=== PATIENT | female | born 1985 | race African-American/Black ===

== ENCOUNTER 2017-11-09 14:43 | Emergency (ER) | payer SELFPAY ==
[2017-11-09] MEDS ORDERED: Ketorolac Tromethamine 60 MG/2 ML VIAL ONE (15:15)
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
== END 2017-11-09 15:51 | disposition home or self-care (01) ==
LOC: ERS 14:43
DX: S70.01XA Contusion of right hip, initial encounter (principal); F17.210 Nicotine dependence, cigarettes, uncomplicated; G51.0 Bell's palsy; W19.XXXA Unspecified fall, initial encounter
CPT/HCPCS: 72170; 96372; J1885

== ENCOUNTER 2017-12-25 14:29 | Emergency (ER) | payer SELFPAY ==
[2017-12-25 15:34] LABS: #Basophils 0.1 thou/uL (0.0-0.2); #Eosinphils 0.6 thou/uL (0.0-0.7); #Lymphocytes 3.3 thou/uL (1.20-3.40); #Monocytes 0.7 thou/uL (0.11-0.59); #Neutrophils 4.5 thou/uL (1.40-6.50); %Basophils 1.4 % (0.0-1.0); %Eosinophils 6.4 % (0.0-10.0); %Lymphocytes 35.4 % (21.0-51.0); %Neutrophils 48.8 % (42.0-75.0); Mean Corpuscular HGB CONC 31.7 g/dL (32.0-36.0); Mean Corpuscular Hemoglobin 26.9 pg (27.0-31.0); Mean Corpuscular Volume 84.8 fl (81.0-99.0); Mean Platelet Volume 7.2 fL (7.4-10.4); Platelet Count 304 thou/uL (130-400); RBC Distribution Width 14.1 % (11.5-14.5); Red Blood Cell (RBC) Count 4.47 mill/uL (4.20-5.40); White Blood Cell (WBC) Count 9.2 thou/uL (4.8-10.8)
[2017-12-25 15:58] LABS: ALT (SGPT) 11 U/L (8-55); AST (SGOT) 15 U/L (5-34); Albumin 3.7 g/dL (3.5-5.0); Alkaline Phosphatase 57 U/L (40-150); Anion Gap 12 mmol/L (10-20); BUN (Urea Nitrogen) 7 mg/dL (7.0-18.7); Bilirubin, Total 0.2 mg/dL (0.2-1.2); CK (CPK) 58 U/L (29-168); Calc. Creatinine Clearance 0 mL/min (70-130); Calcium 8.8 mg/dL (7.8-10.44); Carbon Dioxide 22 mmol/L (22-29); Chloride 109 mmol/L (98-107); Estimated GFR-MDRD Greater than 90; Globulin 2.7 g/dL (2.4-3.5); Glucose 102 mg/dL (70-105); Potassium 4.2 mmol/L (3.5-5.1); Protein, Total 6.4 g/dL (6.0-8.3); Sodium 139 mmol/L (136-145)
[2017-12-25 16:01] LABS: CKMB 0.3 ng/mL (0-6.6); Troponin I Less than 0.010 ng/mL (< 0.028)
--- NOTE | 2017-12-25 16:02 | RAD ---
CHEST ONE VIEW: History: Chest pain. Comparison: 07-10-16 FINDINGS: Lungs are clear. No pneumothorax or effusion. Cardiac silhouette and mediastinal contours are within normal limits. NO acute osseous abnormality. IMPRESSION: No acute intrathoracic abnormality. POS: [facility]
[2017-12-25] MEDS ORDERED: Ketorolac Tromethamine 30 MG/ML VIAL ONE (16:05)
== END 2017-12-25 17:09 | disposition home or self-care (01) ==
LOC: ERS 14:29
DX: J40 Bronchitis, not specified as acute or chronic (principal); F17.210 Nicotine dependence, cigarettes, uncomplicated
CPT/HCPCS: 71045; 80053; 82550; 82553; 84484; 85025; 93005; 96374; J1885

== ENCOUNTER 2018-03-08 13:10 | Emergency (ER) | payer SELFPAY ==
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
== END 2018-03-08 14:31 | disposition home or self-care (01) ==
LOC: ERS 13:10
DX: S52.601A Unspecified fracture of lower end of right ulna, initial encounter for closed fracture (principal); F17.210 Nicotine dependence, cigarettes, uncomplicated; Z71.6 Tobacco abuse counseling; Y04.0XXA Assault by unarmed brawl or fight, initial encounter
CPT/HCPCS: 25530; 96372; 99406; J2270

== ENCOUNTER 2018-05-05 10:13 | Emergency (ER) | payer SELFPAY ==
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
[2018-05-05] MEDS ORDERED: traMADol HCl 50 MG TAB ONE (12:34)
[2018-05-05] MEDS ORDERED: Acetaminophen 500 MG TAB ONE (12:35)
[2018-05-05] MEDS ORDERED: Ketorolac Tromethamine 30 MG/ML VIAL ONE (12:35)
== END 2018-05-05 13:12 | disposition home or self-care (01) ==
LOC: ERS 10:13
DX: S52.601D Unspecified fracture of lower end of right ulna, subsequent encounter for closed fracture with routine healing (principal); G51.0 Bell's palsy; F17.210 Nicotine dependence, cigarettes, uncomplicated
CPT/HCPCS: 29125; 96372; J1885

== ENCOUNTER 2018-07-09 12:51 | Emergency (ER) | payer SELFPAY ==
[2018-07-09] MEDS ORDERED: Acetaminophen 500 MG TAB ONE (13:52)
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
== END 2018-07-09 14:55 | disposition home or self-care (01) ==
LOC: ERS 12:51
DX: J40 Bronchitis, not specified as acute or chronic (principal); F17.210 Nicotine dependence, cigarettes, uncomplicated
CPT/HCPCS: 71046; 87081; 87430; 87804

== ENCOUNTER 2018-07-11 01:49 | Emergency (ER) | payer SELFPAY ==
[2018-07-11 02:38] LABS: #Basophils 0.1 thou/uL (0.0-0.2); #Eosinphils 0.4 thou/uL (0.0-0.7); #Lymphocytes 2.1 thou/uL (1.20-3.40); #Monocytes 0.5 thou/uL (0.11-0.59); #Neutrophils 4.5 thou/uL (1.40-6.50); %Basophils 1.2 % (0.0-1.0); %Eosinophils 5.5 % (0.0-10.0); %Lymphocytes 27.4 % (21.0-51.0); %Monocytes 6.5 % (0.0-10.0); %Neutrophils 59.5 % (42.0-75.0); Hemoglobin 11.5 g/dL (12.0-16.0); Mean Corpuscular HGB CONC 30.8 g/dL (32.0-36.0); Mean Corpuscular Hemoglobin 25.7 pg (27.0-31.0); Mean Corpuscular Volume 83.5 fL (78.0-98.0); Platelet Count 338 thou/uL (130-400); RBC Distribution Width 14.2 % (11.5-14.5); Red Blood Cell (RBC) Count 4.46 mill/uL (4.20-5.40); White Blood Cell (WBC) Count 7.6 thou/uL (4.8-10.8)
[2018-07-11] MEDS ORDERED: Ibuprofen 800 MG TAB ONE (04:13)
--- NOTE | 2018-07-11 08:28 | RAD ---
CHEST 2 VIEWS: Date: 07/11/18 HISTORY: Weakness. COMPARISON: Radiograph dated 07/09/18. FINDINGS: Lungs are clear. No pneumothorax or effusion. Cardiac silhouette and mediastinal contours within norm al limits. No acute osseous abnormality. IMPRESSION: No acute intrathoracic abnormality. POS: [facility]
== END 2018-07-11 04:59 | disposition home or self-care (01) ==
LOC: ERS 01:49
DX: J20.8 Acute bronchitis due to other specified organisms (principal); G51.0 Bell's palsy; F17.210 Nicotine dependence, cigarettes, uncomplicated
CPT/HCPCS: 36415; 71046; 85025

== ENCOUNTER 2018-11-17 09:34 | Emergency (ER) | payer SELFPAY ==
[2018-11-17] MEDS ORDERED: diphenhydrAMINE 50 MG/ML VIAL ONE (10:13)
[2018-11-17] MEDS ORDERED: Metoclopramide HCl 10 MG/2 ML VIAL ONE (10:13)
[2018-11-17] MEDS ORDERED: Acetaminophen 500 MG TAB ONE (10:13)
--- NOTE | 2018-11-17 10:33 | CT ---
CT BRAIN WITHOUT CONTRAST: HISTORY: Headache. COMPARISON: 04/04/2017 FINDINGS: No evidence of infarct, hemorrhage, midline shift, or abnormal extraaxial fluid collections is seen. The ventricular size is normal, and the basilar cisterns are patent. The bony calvarium is intact. There is mucosal disease in the paranasal sinuses. IMPRESSION: 1. No CT evidence of acute intracranial process. 2. Paranasal sinus disease. POS: [facility]
[2018-11-17 10:59] LABS: #Basophils 0.2 thou/uL (0.0-0.2); #Eosinphils 0.4 thou/uL (0.0-0.7); #Lymphocytes 2.8 thou/uL (1.20-3.40); #Monocytes 0.8 thou/uL (0.11-0.59); #Neutrophils 6.3 thou/uL (1.40-6.50); %Basophils 1.8 % (0.0-1.0); %Eosinophils 3.6 % (0.0-10.0); %Lymphocytes 26.7 % (21.0-51.0); %Monocytes 7.2 % (0.0-10.0); %Neutrophils 60.7 % (42.0-75.0); Hemoglobin 11.6 g/dL (12.0-16.0); Mean Corpuscular HGB CONC 30.5 g/dL (32.0-36.0); Mean Corpuscular Hemoglobin 24.2 pg (27.0-31.0); Mean Corpuscular Volume 79.4 fL (78.0-98.0); Mean Platelet Volume 7.4 fL (7.4-10.4); Platelet Count 326 thou/uL (130-400); RBC Distribution Width 15.2 % (11.5-14.5); Red Blood Cell (RBC) Count 4.77 mill/uL (4.20-5.40); White Blood Cell (WBC) Count 10.4 thou/uL (4.8-10.8)
[2018-11-17 11:23] LABS: Anion Gap 15 mmol/L (10-20); BUN (Urea Nitrogen) 9 mg/dL (7.0-18.7); Calc. Creatinine Clearance 0 mL/min (70-130); Calcium 9.2 mg/dL (7.8-10.44); Carbon Dioxide 20 mmol/L (22-29); Chloride 108 mmol/L (98-107); Estimated GFR-MDRD Greater than 90; Glucose 87 mg/dL (70-105); Potassium 3.6 mmol/L (3.5-5.1); Sodium 139 mmol/L (136-145)
[2018-11-17 13:35] LABS: Pregnancy Test - Urine (BHCG) Negative (Negative); Pregu Control Background? CLEAR/WHITE (CLR/WHITE); Pregu Control Bar Appear? YES (CONTROL BAR); Specific Gravity 1.023 (1.002-1.036)
== END 2018-11-17 12:55 | disposition home or self-care (01) ==
LOC: ERS 09:34
DX: G43.109 Migraine with aura, not intractable, without status migrainosus (principal); G51.0 Bell's palsy; F17.210 Nicotine dependence, cigarettes, uncomplicated
CPT/HCPCS: 36415; 70450; 80048; 81025; 85025; 96365; 96366; 96375; J1200; J2765